=== PATIENT | male | born 1970 ===

== ENCOUNTER 2017-06-15 11:16 | Emergency (ER) | payer OTHER ==
[2017-06-15 11:46] VITALS: RESP 20; TEMP 97.9; O2SAT 95
[2017-06-15 14:21] VITALS: BP 138/79; PULSE 80
--- NOTE | 2017-06-15 18:41 | C.PDOC ---
History Of Present Illness 47 year old male, who is wheelchair bound and requires social work, presents to the ED for evaluation of back pain and chronic cough. Patient denies fever, chills, chest pain, and shortness of breath. Chief Complaint (Nursing): Cough, Cold, Congestion History Per: Patient History/Exam Limitations: no limitations Onset/Duration Of Symptoms: Days Current Symptoms Are (Timing): Still Present Associated Symptoms: denies: Fever, Chills Additional History Per: Patient Past Medical History Reviewed: Historical Data, Nursing Documentation, Vital Signs Vital Signs: Last Vital Signs Temp 97.9 F 06/15/17 11:40 Pulse 80 06/15/17 14:20 Resp 20 06/15/17 14:20 BP 138/79 06/15/17 14:20 Pulse Ox 95 06/15/17 18:43 - Medical History PMH: Back Problems, HTN Surgical History: No Surg Hx Family History: States: Unknown Family Hx - Social History Hx Alcohol Use: No Hx Substance Use: No - Immunization History Hx Tetanus Toxoid Vaccination: No Hx Influenza Vaccination: No Hx Pneumococcal Vaccination: No Review Of Systems Constitutional: Negative for: Fever, Chills Cardiovascular: Negative for: Chest Pain Respiratory: Positive for: Cough. Negative for: Shortness of Breath Musculoskeletal: Positive for: Back Pain Physical Exam - Physical Exam Appears: Non-toxic, No Acute Distress Skin: Normal Color, Warm, Dry Head: Atraumatic, Normacephalic Eye(s): bilateral: Normal Inspection Ear(s): Bilateral: Normal Nose: Normal, No Discharge Oral Mucosa: Moist Throat: Normal, No Erythema, No Exudate Neck: Supple Chest: Symmetrical, No Deformity, No Tenderness Cardiovascular: Rhythm Regular, No Murmur Respiratory: Normal Breath Sounds, No Rales, No Rhonchi, No Wheezing Extremity: Capillary Refill (less than 2 seconds ) Neurological/Psych: Other (atrophy of bilateral lower extremities ) ED Course And Treatment O2 Sat by Pulse Oximetry: 95 (on RA) Pulse Ox Interpretation: Normal Disposition - Disposition Referrals: [facility] [Outside] [facility] [Outside] Disposition: HOME/ ROUTINE Disposition Time: 12:30 Condition: GOOD Additional Instructions: Thank you for letting us take care of you today. The emergency medical care you received today was directed at your acute symptoms. If you were prescribed any medication, please fill it and take as directed. It may take several days for your symptoms to resolve. Return to the Emergency Department if your symptoms worsen, do not improve, or if you have any other problems. Please contact your doctor or call one of the physicians/clinics you have been referred to that are listed on the Patient Visit Information form that is included in your discharge packet. Bring any paperwork you were given at discharge with you along with any medications you are taking to your follow up visit. Our treatment cannot replace ongoing medical care by a primary care provider (PCP) outside of the emergency department. Thank you for allowing the [facility] team to be part of your care today. Follow up with the clinic for outpatient care and further management. Use the information given to you by the nephrology social worker to utilize resources available to you. Forms: [employer] (Romanian) - Clinical Impression Clinical Impression: Chronic back pain - Scribe Statement The provider has reviewed the documentation as recorded by the Scribe (Ivelisse Alston) Provider Attestation: All medical record entries made by the Scribe were at my direction and personally dictated by me. I have reviewed the chart and agree that the record accurately reflects my personal performance of the history, physical exam, medical decision making, and the department course for this patient. I have also personally directed, reviewed, and agree with the discharge instructions and disposition.
== END 2017-06-15 14:21 | disposition home or self-care (01) ==
LOC: C.ER 11:16
DX: M54.9 Dorsalgia, unspecified (principal); G89.29 Other chronic pain